=== PATIENT | female | born 1950 | race Caucasian/White ===

== ENCOUNTER 2018-05-31 19:14 | Inpatient (IN) | payer MEDICARE ==
[~2018-05-31] VITALS: Ht 172.7 cm; Wt 74.9 kg
[2018-05-31] MEDS ORDERED: SODIUM CHLORIDE 0.9% 1,000ML IVBOLUS ONE (19:30)
[2018-05-31] MEDS ORDERED: SODIUM CHLORIDE FLUSH 10ML SYR IVF ONE (19:30)
[2018-05-31 19:40] LABS: PH, VENOUS 7.389 pH (7.320-7.420)
[2018-05-31 19:43] LABS: BASOPHILS # (AUTO) 0.02 x10^3/uL (0-0.1); BASOPHILS % (AUTO) 0 % (0-1); EOSINOPHILS # (AUTO) 0.06 x10^3/uL (0-0.4); EOSINOPHILS % (AUTO) 1 % (1-7); LYMPHOCYTES % (AUTO) 17 % (22-44); MD NO; MEAN CORPUSCULAR HEMOGLOBIN 30.7 pg (27.0-34.8); MEAN CORPUSCULAR HGB CONC 33.8 g/dL (32.4-35.8); MEAN PLATELET VOLUME 8.4 fL (7.4-10.4); MONOCYTES # (AUTO) 1.01 x10^3/uL (0.2-0.8); MONOCYTES % (AUTO) 9 % (2-9); NEUTROPHILS # (AUTO) 8.62 x10^3/uL (1.8-6.8); NEUTROPHILS % (AUTO) 74 % (42-75); PLATELET COUNT 256 x10^3/uL (130-400); RED BLOOD COUNT 5.19 x10^6/uL (3.82-5.3); RED CELL DISTRIBUTION WIDTH 12.9 % (9.6-15.2)
[2018-05-31 19:51] LABS: ALANINE AMINOTRANSFERASE 23 U/L (12-78); ALBUMIN 3.8 g/dL (3.4-5.0); ANION GAP 11 mmol/L (5-15); CALCIUM 8.9 mg/dL (8.5-10.1); CHLORIDE 103 mmol/L (98-107); CREATININE 1.16 mg/dL (0.55-1.02)
[2018-05-31 19:54] LABS: ALKALINE PHOSPHATASE 79 U/L (45-117); BILIRUBIN,TOTAL 0.5 mg/dL (0.2-1.0); TOTAL PROTEIN 7.3 g/dL (6.4-8.2)
[2018-05-31 19:57] LABS: ACETONE, SERUM Small (20mg/dL) mg/dL (Negative)
[2018-05-31] MEDS ORDERED: PLEASE ENTER ALLERGIES MC SCH (20:00)
[2018-05-31 21:00] LABS: MICROSCOPIC NOT IND
[2018-05-31 21:02] LABS: CULTURE INDICATED? NO
[2018-05-31] MEDS ORDERED: SODIUM CHLORIDE FLUSH 10ML SYR IVF PRN (23:30)
[2018-06-01 00:20] VITALS: BP 129/74
[2018-06-01] MEDS ORDERED: ACETAMINOPHEN 650 MG/20.3 ML UDC PO PRN (01:30)
[2018-06-01] MEDS ORDERED: DEXTROSE 4 GM TAB.CHEW PO PRN (01:30)
[2018-06-01] MEDS ORDERED: DEXTROSE 50%, 50ML SYRINGE IVPush PRN (01:30)
[2018-06-01] MEDS ORDERED: TEMAZEPAM 15 MG CAPSULE PO PRN (01:30)
[2018-06-01] MEDS ORDERED: GLUCAGON 1 MG IM PRN (01:30)
[2018-06-01] MEDS ORDERED: ONDANSETRON 2MG/ML, 2ML IVPush PRN (01:30)
[2018-06-01 02:21] LABS: BASOPHILS # (AUTO) 0.04 x10^3/uL (0-0.1); BASOPHILS % (AUTO) 0 % (0-1); EOSINOPHILS # (AUTO) 0.02 x10^3/uL (0-0.4); EOSINOPHILS % (AUTO) 0 % (1-7); LYMPHOCYTES # (AUTO) 1.63 x10^3/uL (1-3.4); LYMPHOCYTES % (AUTO) 13 % (22-44); MD NO; MEAN CORPUSCULAR HEMOGLOBIN 30.5 pg (27.0-34.8); MEAN CORPUSCULAR HGB CONC 34.3 g/dL (32.4-35.8); MEAN CORPUSCULAR VOLUME 88.9 fL (80-100); MEAN PLATELET VOLUME 8.3 fL (7.4-10.4); MONOCYTES # (AUTO) 1.03 x10^3/uL (0.2-0.8); MONOCYTES % (AUTO) 8 % (2-9); NEUTROPHILS # (AUTO) 9.51 x10^3/uL (1.8-6.8); NEUTROPHILS % (AUTO) 78 % (42-75); PLATELET COUNT 253 x10^3/uL (130-400); RED BLOOD COUNT 5.07 x10^6/uL (3.82-5.3); RED CELL DISTRIBUTION WIDTH 12.8 % (9.6-15.2)
[2018-06-01 02:34] LABS: ALANINE AMINOTRANSFERASE 23 U/L (12-78); ALBUMIN 3.6 g/dL (3.4-5.0); ANION GAP 10 mmol/L (5-15); CALCIUM 8.9 mg/dL (8.5-10.1); CHLORIDE 106 mmol/L (98-107); CREATININE 0.93 mg/dL (0.55-1.02)
[2018-06-01 02:35] VITALS: BP 151/87
[2018-06-01 02:36] LABS: ALKALINE PHOSPHATASE 72 U/L (45-117); BILIRUBIN,TOTAL 0.6 mg/dL (0.2-1.0); TOTAL PROTEIN 7.1 g/dL (6.4-8.2)
[2018-06-01 02:43] LABS: HEMOGLOBIN A1C 9.1 % (4.2-6.3)
[2018-06-01] MEDS: INSULIN LISPRO 100 UNITS/ML, PEN SQ-INSULIN SCH ×5 (03:52→21:55)
[2018-06-01] MEDS: SODIUM CHLORIDE 0.9% 1,000 ML IV SCH (03:53)
[2018-06-01 07:55] VITALS: BP 148/79
[2018-06-01] MEDS: SODIUM CHLORIDE FLUSH 10ML SYR IVF SCH ×2 (08:55→21:56)
[2018-06-01 11:12] LABS: AMPHETAMINE SCREEN, URINE Negative (Negative); BARBITURATE SCREEN, URINE Negative (Negative); BENZODIAZEPINE SCREEN, URINE Negative (Negative); CANNABINOID SCREEN, URINE Negative (Negative); COCAINE SCREEN, URINE Negative (Negative); METHADONE SCREEN, URINE Negative (Negative); OPIATE SCREEN, URINE Negative (Negative)
[2018-06-01] MEDS: ASPIRIN 81 MG TABLET CHEW PO/NG SCH (13:00)
[2018-06-01 13:43] VITALS: BP 162/74
[2018-06-01 19:41] VITALS: BP 135/70
[2018-06-01] MEDS: ATORVASTATIN 40 MG TABLET PO SCH (21:56)
[2018-06-02 01:52] VITALS: BP 127/68
[2018-06-02] MEDS: SODIUM CHLORIDE 0.9% 1,000 ML IV SCH (02:02)
[2018-06-02 04:04] VITALS: BP 136/83
[2018-06-02 04:58] LABS: BASOPHILS # (AUTO) 0.02 x10^3/uL (0-0.1); BASOPHILS % (AUTO) 0 % (0-1); EOSINOPHILS % (AUTO) 1 % (1-7); LYMPHOCYTES # (AUTO) 2.12 x10^3/uL (1-3.4); LYMPHOCYTES % (AUTO) 25 % (22-44); MD NO; MEAN CORPUSCULAR HEMOGLOBIN 30.6 pg (27.0-34.8); MEAN CORPUSCULAR HGB CONC 33.9 g/dL (32.4-35.8); MEAN CORPUSCULAR VOLUME 90.3 fL (80-100); MEAN PLATELET VOLUME 8.2 fL (7.4-10.4); MONOCYTES # (AUTO) 0.75 x10^3/uL (0.2-0.8); MONOCYTES % (AUTO) 9 % (2-9); NEUTROPHILS # (AUTO) 5.44 x10^3/uL (1.8-6.8); NEUTROPHILS % (AUTO) 65 % (42-75); PLATELET COUNT 208 x10^3/uL (130-400); RED BLOOD COUNT 4.56 x10^6/uL (3.82-5.3); RED CELL DISTRIBUTION WIDTH 12.6 % (9.6-15.2)
[2018-06-02 05:03] LABS: CHLORIDE 110 mmol/L (98-107)
[2018-06-02 05:13] LABS: ANION GAP 8 mmol/L (5-15); CALCIUM 8.4 mg/dL (8.5-10.1); CHOL/HDL RATIO 3.5; CHOLESTEROL, TOTAL 142 mg/dL (140-239); CREATININE 0.81 mg/dL (0.55-1.02); HDL CHOL % 29 % (28-40); HDL CHOLESTEROL (DIRECT) 41 mg/dL (40-60); LDL CHOLESTEROL,CALCULATED 74 mg/dL (54-169); LDL/HDL RATIO 1.8 (0.5-3.0); TRIGLYCERIDES 137 mg/dL (50-200); VLDL CHOLESTEROL 27 mg/dL (0-25)
[2018-06-02 07:14] VITALS: BP 131/83
[2018-06-02] MEDS: INSULIN LISPRO 100 UNITS/ML, PEN SQ-INSULIN SCH ×4 (08:23→20:20)
[2018-06-02] MEDS: ASPIRIN 81 MG TABLET CHEW PO/NG SCH (08:23)
[2018-06-02] MEDS: SODIUM CHLORIDE FLUSH 10ML SYR IVF SCH ×2 (08:23→20:20)
[2018-06-02 12:10] VITALS: BP 154/79
[2018-06-02 19:46] VITALS: BP 137/78
[2018-06-02] MEDS: ATORVASTATIN 40 MG TABLET PO SCH (20:19)
[2018-06-03] VITALS: BP 124/78
[2018-06-03 04:22] VITALS: BP 138/75
[2018-06-03 07:12] VITALS: BP 132/78
[2018-06-03] MEDS: ASPIRIN 81 MG TABLET CHEW PO/NG SCH (08:53)
[2018-06-03] MEDS: INSULIN LISPRO 100 UNITS/ML, PEN SQ-INSULIN SCH ×4 (08:54→21:34)
[2018-06-03] MEDS: SODIUM CHLORIDE FLUSH 10ML SYR IVF SCH ×2 (08:55→21:00)
[2018-06-03] MEDS ORDERED: ACET650S21 PO (11:09)
[2018-06-03] MEDS ORDERED: ASPI-515 PO/NG (11:09)
[2018-06-03] MEDS ORDERED: INSU100I11 SQ-INSULIN (11:09)
[2018-06-03] MEDS ORDERED: ATOR40TA78 PO (11:09)
[2018-06-03] MEDS ORDERED: INSU100I13 SQ (11:09)
[2018-06-03 12:05] VITALS: BP 123/75
[2018-06-03] MEDS: INSULIN GLARGINE 100 UNITS/ML, PEN SQ-INSULIN SCH ×2 (12:28→21:31)
[2018-06-03 21:16] VITALS: BP 147/74
[2018-06-03] MEDS: ATORVASTATIN 40 MG TABLET PO SCH (21:30)
[2018-06-04 04:00] VITALS: BP 145/80
[2018-06-04 07:19] VITALS: BP 149/78
[2018-06-04] MEDS: INSULIN LISPRO 100 UNITS/ML, PEN SQ-INSULIN SCH ×4 (09:31→23:12)
[2018-06-04] MEDS: INSULIN GLARGINE 100 UNITS/ML, PEN SQ-INSULIN SCH ×2 (09:31→23:13)
[2018-06-04] MEDS: SODIUM CHLORIDE FLUSH 10ML SYR IVF SCH ×2 (09:32→21:00)
[2018-06-04] MEDS: ASPIRIN 81 MG TABLET CHEW PO/NG SCH (09:32)
[2018-06-04 14:11] VITALS: BP 127/74
[2018-06-04 18:52] VITALS: BP 149/75
[2018-06-04] MEDS: ATORVASTATIN 40 MG TABLET PO SCH (23:13)
[2018-06-05 00:42] VITALS: BP 116/71
[2018-06-05 05:51] VITALS: BP 123/73
[2018-06-05 07:52] VITALS: BP 122/77
[2018-06-05] MEDS: INSULIN GLARGINE 100 UNITS/ML, PEN SQ-INSULIN SCH ×2 (09:20→21:30)
[2018-06-05] MEDS: INSULIN LISPRO 100 UNITS/ML, PEN SQ-INSULIN SCH ×4 (09:20→21:30)
[2018-06-05] MEDS: ASPIRIN 81 MG TABLET CHEW PO/NG SCH (09:21)
[2018-06-05 13:16] VITALS: BP 146/78
[2018-06-05] MEDS: SODIUM CHLORIDE FLUSH 10ML SYR IVF SCH ×2 (17:09→21:00)
[2018-06-05 21:26] VITALS: BP 158/82
[2018-06-05] MEDS: ATORVASTATIN 40 MG TABLET PO SCH (21:29)
[2018-06-06 00:09] VITALS: BP 137/79
[2018-06-06 05:36] VITALS: BP 112/73
[2018-06-06 07:05] VITALS: BP 135/76
[2018-06-06] MEDS: INSULIN LISPRO 100 UNITS/ML, PEN SQ-INSULIN SCH ×4 (08:26→20:23)
[2018-06-06] MEDS: ASPIRIN 81 MG TABLET CHEW PO/NG SCH (08:26)
[2018-06-06] MEDS: INSULIN GLARGINE 100 UNITS/ML, PEN SQ-INSULIN SCH ×2 (08:27→20:24)
[2018-06-06] MEDS: SODIUM CHLORIDE FLUSH 10ML SYR IVF SCH ×2 (08:27→20:25)
[2018-06-06 13:09] VITALS: BP 120/70
[2018-06-06] MEDS: ATORVASTATIN 40 MG TABLET PO SCH (20:23)
[2018-06-07] MEDS: ASPIRIN 81 MG TABLET CHEW PO/NG SCH (08:45)
[2018-06-07] MEDS: INSULIN LISPRO 100 UNITS/ML, PEN SQ-INSULIN SCH ×3 (08:46→16:29)
[2018-06-07] MEDS: INSULIN GLARGINE 100 UNITS/ML, PEN SQ-INSULIN SCH (08:46)
[2018-06-07] MEDS: SODIUM CHLORIDE FLUSH 10ML SYR IVF SCH (08:47)
[2018-06-07 16:26] VITALS: BP 132/75
== END 2018-06-07 17:28 | DRG 64 ==
LOC: ED 21:37 → 4NOR 23:12 → 4WST 06-01 02:25
PROVIDERS: ADMIT Family Medicine; ATTEND Family Medicine
DX: I63.9 Cerebral infarction, unspecified (principal); G93.49 Other encephalopathy; E11.65 Type 2 diabetes mellitus with hyperglycemia; H70.90 Unspecified mastoiditis, unspecified ear; I10 Essential (primary) hypertension; I49.3 Ventricular premature depolarization; R47.01 Aphasia; Z79.82 Long term (current) use of aspirin; E78.5 Hyperlipidemia, unspecified; R47.1 Dysarthria and anarthria
CPT/HCPCS: 36415; 70450; 70551; 71045; 80053; 80061; 80069; 80307; 81003; 82010; 82140; 82803; 82962; 83036; 85025; 87040; 93005; 93306; 93880; 99285; 92523-GN; J1815; J7030